=== PATIENT | female | born 1945 | race Caucasian/White ===

== ENCOUNTER 2023-10-12 17:03 | Emergency (ER) | payer MEDICARE ==
[2023-10-12 17:14] VITALS: BP 154/73; PULSE 73
== END 2023-10-12 17:45 | disposition home or self-care (01) ==
LOC: KA.ED 17:03
DX: H92.02 Otalgia, left ear (principal); I10 Essential (primary) hypertension; Z86.16 Personal history of COVID-19; Z91.018 Allergy to other foods; Z88.0 Allergy status to penicillin; Z88.5 Allergy status to narcotic agent; Z88.2 Allergy status to sulfonamides; Z88.1 Allergy status to other antibiotic agents; Z88.6 Allergy status to analgesic agent
CPT/HCPCS: 69209; 99282

== ENCOUNTER 2023-11-30 17:10 | Inpatient (IN) | payer MEDICARE ==
[2023-11-30] MEDS ORDERED: Sodium Chloride 0.9% 10 ML Syringe FLUSH PRN (17:30)
[2023-11-30 17:43] LABS: BASOPHILS ABSOLUTE AUTO 0.01 10^3/uL (0.00-0.10); BASOPHILS PERCENT AUTO 0.1 % (0.0-1.0); EOSINOPHILS ABSOLUTE AUTO 0.01 10^3/uL (0.10-0.30); EOSINOPHILS PERCENT AUTO 0.1 % (1.0-3.0); HEMATOCRIT 45.6 % (37.0-47.0); HEMOGLOBIN 15.1 g/dL (12.0-16.0); IMMATURE GRAN ABSOLUTE AUTO 0.03 10^3/uL (0.00-0.50); IMMATURE GRAN PERCENT AUTO 0.2 % (0.0-5.0); LYMPHOCYTES ABSOLUTE AUTO 0.39 10^3/uL (1.00-4.00); MEAN CORPUSCULAR HEMOGLOBIN 29.4 pg (27.0-31.0); MEAN CORPUSCULAR HGB CONC 33.1 g/dL (32.0-36.0); MEAN CORPUSCULAR VOLUME 88.7 fL (82.0-92.0); MEAN PLATELET VOLUME 9.8 fL (7.4-10.4); MONOCYTES ABSOLUTE AUTO 1.13 10^3/uL (0.10-0.80); MONOCYTES PERCENT AUTO 8.7 % (2.0-8.0); NEUTROPHILS ABSOLUTE AUTO 11.43 10^3/uL (2.50-7.00); NEUTROPHILS PERCENT AUTO 87.9 % (50.0-70.0); PLATELET COUNT,PLT 178 10^3/uL (150-400); RED BLOOD CELL COUNT 5.14 10^6/uL (3.80-5.50); RED CELL DISTRIBUTION WIDTH 13.6 % (11.5-14.5)
[2023-11-30] MEDS: Sodium Chloride 0.9% 1,000 ML IV ONE (17:53)
[2023-11-30] MEDS: Albuterol/Ipratropium 3.0-0.5 MG/3 ML Neb Soln NEB ONE ×2 (17:53→18:38)
[2023-11-30 18:02] LABS: LACTIC ACID 1.6 mmol/L (0.4-2.0)
[2023-11-30 18:08] LABS: ALANINE AMINOTRANSFERASE,ALT 57 U/L (14-63); ALBUMIN 3.06 g/dL (3.40-5.00); ALKALINE PHOSPHATASE 166 U/L (46-116); ANION GAP 14.5 mmol/L (5-15); ASPARTATE AMNIOTRANSFERASE,AST 41 U/L (15-37); BILIRUBIN TOTAL 2.1 mg/dL (0.2-1.0); BLOOD UREA NITROGEN,BUN 18 mg/dL (7-18); CALCIUM 8.7 mg/dL (8.7-10.3); CARBON DIOXIDE,CO2 28.2 mmol/L (21.0-32.0); CHLORIDE,CL 98 mmol/L (98-107); CREATININE 0.74 mg/dL (0.51-1.17); ESTIMATED GFR 82 mL/min (>=60); GLUCOSE RANDOM 123 mg/dL (70-140); POTASSIUM,K 3.7 mmol/L (3.5-5.1); PROTEIN TOTAL,TP 6.4 g/dL (6.4-8.2); SODIUM,NA 137 mmol/L (136-145)
[2023-11-30 18:10] LABS: CORONAVIRUS COVID-19 NAA NEGATIVE (NEGATIVE); INFLUENZA A NAA NEGATIVE (NEGATIVE); INFLUENZA B NAA NEGATIVE (NEGATIVE); RESPIRATORY SYNCYTIAL VIR NAA NEGATIVE (NEGATIVE)
[2023-11-30] MEDS: cefTRIAXone 1 GM Vial IVPUSH ONE (18:38)
[2023-11-30] MEDS: Azithromycin 500 MG in Sodium Chloride 0.9% 250 ML IV ONE (19:00)
[2023-11-30] MEDS: methylPREDNISolone Sodium Succinate 125 MG/2 ML SDV IVPUSH ONE (19:00)
[2023-11-30] MEDS: rOPINIRole 1 MG Tab PO SCH (21:16)
[2023-11-30] MEDS: Albuterol/Ipratropium 3.0-0.5 MG/3 ML Neb Soln NEB PRN (22:50)
[2023-12-01 05:57] LABS: APPEARANCE,URINE CLEAR (CLEAR); BILIRUBIN,URINE SMALL (NEGATIVE); COLOR,URINE AMBER (YELLOW); GLUCOSE,URINE 100 mg/dL (NEGATIVE); KETONES,URINE 40 mg/dL (NEGATIVE); LEUKOCYTE ESTERASE,URINE NEGATIVE (NEGATIVE); NITRITE,URINE NEGATIVE (NEGATIVE); OCCULT BLOOD,URINE MODERATE (NEGATIVE); PH,URINE 5.5 (5.0-9.0); PROTEIN,URINE >=300 mg/dL (NEGATIVE); UROBILINOGEN,URINE >=8.0 E.U./dL (0.2-1.0)
[2023-12-01 06:07] LABS: BACTERIA,URINE FEW /HPF (NONE TO FEW); EPITHELIAL CELLS,URINE FEW /LPF; WBC,URINE 0-5 /HPF (0-5); YEAST,URINE RARE /HPF (NEGATIVE)
[2023-12-01] MEDS: Acetaminophen 325 MG Tab PO PRN (06:26)
[2023-12-01 06:46] LABS: HEMATOCRIT 42.8 % (37.0-47.0); HEMOGLOBIN 14.3 g/dL (12.0-16.0); MEAN CORPUSCULAR HEMOGLOBIN 29.2 pg (27.0-31.0); MEAN CORPUSCULAR HGB CONC 33.4 g/dL (32.0-36.0); MEAN CORPUSCULAR VOLUME 87.5 fL (82.0-92.0); PLATELET COUNT,PLT 181 10^3/uL (150-400); RED BLOOD CELL COUNT 4.89 10^6/uL (3.80-5.50); RED CELL DISTRIBUTION WIDTH 13.6 % (11.5-14.5); WHITE BLOOD CELL COUNT,WBC 11.06 10^3/uL (5.00-10.00)
[2023-12-01 06:59] LABS: ANION GAP 15.5 mmol/L (5-15); CALCIUM 8.7 mg/dL (8.7-10.3); CARBON DIOXIDE,CO2 26.1 mmol/L (21.0-32.0); CREATININE 0.57 mg/dL (0.51-1.17); EST CRCL DRUG DOSING (CG) 56.54 mL/min; POTASSIUM,K 3.6 mmol/L (3.5-5.1)
[2023-12-01 07:19] LABS: LYMPHOCYTES PERCENT MAN 5 % (20-40); MONOCYTES ABSOLUTE MAN 0.2212; MONOCYTES PERCENT MAN 2 % (2-8); NEUTROPHILS ABSOLUTE MAN 10.2858; SEG NEUTROPHILS PERCENT MAN 93 % (50-70)
[2023-12-01] MEDS: rOPINIRole 1 MG Tab PO SCH (08:35)
[2023-12-01] MEDS: predniSONE 20 MG Tab PO SCH (08:35)
[2023-12-01] MEDS: guaiFENesin 600 MG Tab.ER PO SCH (08:35)
[2023-12-01] MEDS: Atenolol 25 MG Tab PO SCH (08:38)
[2023-12-01] MEDS: amLODIPine 5 MG Tab PO SCH (08:39)
[2023-12-01] MEDS: Hydrochlorothiazide/Triamterene 25-37.5 MG Cap PO SCH (08:39)
[2023-12-01] MEDS: Azithromycin 250 MG Tab PO SCH (08:39)
[2023-12-01] MEDS: Enoxaparin 40 MG/0.4 ML Syringe SUBCUT SCH (08:40)
[2023-12-01] MEDS: cefTRIAXone 2 GM Vial IVPUSH SCH (08:40)
[2023-12-01] MEDS ORDERED: guaiFENesin 600 MG Tab.ER PO SCH (09:00)
[2023-12-01] MEDS: Furosemide 40 MG/4 ML VIAL IVPUSH ONE (12:15)
[2023-12-01] MEDS: Ketorolac 30 MG/ML SDV IVPUSH PRN (14:49)
[2023-12-01] MEDS: guaiFENesin/Dextromethorphan 100-10 MG/5 ML Soln 5 ML Cup PO PRN (16:16)
[2023-12-01] MEDS: Ondansetron 4 MG/2 ML SDV IVPUSH PRN (18:13)
[2023-12-02] MEDS: Codeine/guaiFENesin 10-100 MG/5 ML Syrup 5 ML Cup PO PRN (05:20)
[2023-12-02 06:28] LABS: HEMATOCRIT 45.4 % (37.0-47.0); HEMOGLOBIN 15.1 g/dL (12.0-16.0); IMMATURE GRAN ABSOLUTE AUTO 0.09 10^3/uL (0.00-0.50); IMMATURE GRAN PERCENT AUTO 0.4 % (0.0-5.0); LYMPHOCYTES ABSOLUTE AUTO 0.95 10^3/uL (1.00-4.00); LYMPHOCYTES PERCENT AUTO 4.7 % (20.0-40.0); MEAN CORPUSCULAR HEMOGLOBIN 29.1 pg (27.0-31.0); MEAN CORPUSCULAR HGB CONC 33.3 g/dL (32.0-36.0); MEAN CORPUSCULAR VOLUME 87.5 fL (82.0-92.0); MEAN PLATELET VOLUME 10.1 fL (7.4-10.4); MONOCYTES ABSOLUTE AUTO 1.57 10^3/uL (0.10-0.80); MONOCYTES PERCENT AUTO 7.7 % (2.0-8.0); NEUTROPHILS ABSOLUTE AUTO 17.76 10^3/uL (2.50-7.00); NEUTROPHILS PERCENT AUTO 87.2 % (50.0-70.0); PLATELET COUNT,PLT 235 10^3/uL (150-400); RED BLOOD CELL COUNT 5.19 10^6/uL (3.80-5.50); RED CELL DISTRIBUTION WIDTH 13.8 % (11.5-14.5); WHITE BLOOD CELL COUNT,WBC 20.37 10^3/uL (5.00-10.00)
[2023-12-02] MEDS: Diltiazem 25 MG/5 ML SDV IVPUSH ONE ×3 (06:32→08:50)
[2023-12-02] MEDS: Apixaban 5 MG Tab PO SCH (06:35)
[2023-12-02] MEDS: Diltiazem 125 MG in Sodium Chloride 0.9% 100 ML IV SCH (06:44)
[2023-12-02 06:56] LABS: ALBUMIN 2.85 g/dL (3.40-5.00); ANION GAP 12.5 mmol/L (5-15); BILIRUBIN TOTAL 0.6 mg/dL (0.2-1.0); CALCIUM 8.7 mg/dL (8.7-10.3); CARBON DIOXIDE,CO2 28.4 mmol/L (21.0-32.0); CREATININE 0.69 mg/dL (0.51-1.17); EST CRCL DRUG DOSING (CG) 46.71 mL/min; POTASSIUM,K 3.9 mmol/L (3.5-5.1); PROTEIN TOTAL,TP 6.4 g/dL (6.4-8.2)
[2023-12-02 12:04] LABS: PCO2 ARTERIAL,POC 38 mmHg (35-48); PH ARTERIAL,POC 7.47 pH (7.35-7.45)
[2023-12-02 12:05] LABS: HCO3 ARTERIAL,POC 27.7 mmol/L (21-28)
[2023-12-02 12:07] LABS: PO2 ARTERIAL,POC 55 mmHg (83-108)
[2023-12-02 12:12] LABS: HCO3 ARTERIAL,POC 27.7 mmol/L (21-28); PCO2 ARTERIAL,POC 38 mmHg (35-48); PH ARTERIAL,POC 7.47 pH (7.35-7.45); PO2 ARTERIAL,POC 55 mmHg (83-108)
[2023-12-02] MEDS ORDERED: Sodium Chloride 0.9% 50 ML IV SCH (12:30)
[2023-12-02] MEDS: Iopamidol 755 Mg/ML 100 ML Bottle IV ONE (13:55)
[2023-12-02] MEDS: Sodium Chloride 0.9% 100 ML IV SCH (13:59)
[2023-12-02 14:32] VITALS: BP 117/69; PULSE 113
== END 2023-12-02 14:15 | DRG 871 ==
LOC: KA.ED 17:10 → KA.MS 19:11
PROVIDERS: ADMIT Family Medicine; ATTEND Internal Medicine
PROC: 4A033R1 Measurement of Arterial Saturation, Peripheral, Percutaneous Approach (ICD-10-PCS; principal; 2023-11-30)
PROC: 3E03329 Introduction of Other Anti-infective into Peripheral Vein, Percutaneous Approach (ICD-10-PCS; 2023-11-30)
DX: A41.9 Sepsis, unspecified organism (principal); J96.01 Acute respiratory failure with hypoxia; I42.9 Cardiomyopathy, unspecified; J44.1 Chronic obstructive pulmonary disease with (acute) exacerbation; J44.0 Chronic obstructive pulmonary disease with (acute) lower respiratory infection; J84.9 Interstitial pulmonary disease, unspecified; Z66 Do not resuscitate; I50.9 Heart failure, unspecified; I11.0 Hypertensive heart disease with heart failure; M19.90 Unspecified osteoarthritis, unspecified site; G43.909 Migraine, unspecified, not intractable, without status migrainosus; F32.A Depression, unspecified; G25.81 Restless legs syndrome; F17.210 Nicotine dependence, cigarettes, uncomplicated; R09.02 Hypoxemia; I10 Essential (primary) hypertension; I48.91 Unspecified atrial fibrillation; Z86.16 Personal history of COVID-19; Z79.899 Other long term (current) drug therapy; Z88.0 Allergy status to penicillin; Z98.890 Other specified postprocedural states; Z88.2 Allergy status to sulfonamides; Z91.018 Allergy to other foods; Z88.8 Allergy status to other drugs, medicaments and biological substances; M54.9 Dorsalgia, unspecified; G89.29 Other chronic pain; Z87.11 Personal history of peptic ulcer disease; M81.0 Age-related osteoporosis without current pathological fracture; Z91.51 Personal history of suicidal behavior; Z98.1 Arthrodesis status
CPT/HCPCS: 0241U; 36415; 36600; 71045; 71275; 80048; 80053; 81001; 82803; 83605; 84484; 85025; 87040; 87070; 87205; 93005; 93010; 94640; 96361; 96374; 96375; 99223-GT; 99233-GT; 99239-GT; 99284; 99285-25; A9270-GY; J0456; J0696; J1650; J1885; J1940; J2405; J2930; J3490; J7030; J7050; J7512; J7620-GY; Q3014; Q9967

== ENCOUNTER 2024-01-14 09:15 | Emergency (ER) | payer MEDICARE ==
[2024-01-14 09:38] VITALS: BP 106/64; PULSE 81
[2024-01-14 10:00] LABS: BASOPHILS ABSOLUTE AUTO 0.06 10^3/uL (0.00-0.10); BASOPHILS PERCENT AUTO 0.7 % (0.0-1.0); EOSINOPHILS ABSOLUTE AUTO 0.37 10^3/uL (0.10-0.30); EOSINOPHILS PERCENT AUTO 4.1 % (1.0-3.0); HEMATOCRIT 42.1 % (37.0-47.0); HEMOGLOBIN 13.4 g/dL (12.0-16.0); IMMATURE GRAN ABSOLUTE AUTO 0.18 10^3/uL (0.00-0.50); LYMPHOCYTES ABSOLUTE AUTO 0.92 10^3/uL (1.00-4.00); LYMPHOCYTES PERCENT AUTO 10.1 % (20.0-40.0); MEAN CORPUSCULAR HEMOGLOBIN 28.6 pg (27.0-31.0); MEAN CORPUSCULAR HGB CONC 31.8 g/dL (32.0-36.0); MEAN CORPUSCULAR VOLUME 89.8 fL (82.0-92.0); MEAN PLATELET VOLUME 9.7 fL (7.4-10.4); MONOCYTES ABSOLUTE AUTO 0.83 10^3/uL (0.10-0.80); MONOCYTES PERCENT AUTO 9.1 % (2.0-8.0); NEUTROPHILS ABSOLUTE AUTO 6.76 10^3/uL (2.50-7.00); PLATELET COUNT,PLT 256 10^3/uL (150-400); RED BLOOD CELL COUNT 4.69 10^6/uL (3.80-5.50); RED CELL DISTRIBUTION WIDTH 15.5 % (11.5-14.5); WHITE BLOOD CELL COUNT,WBC 9.12 10^3/uL (5.00-10.00)
[2024-01-14 10:17] LABS: ALBUMIN 3.21 g/dL (3.40-5.00); ANION GAP 7.8 mmol/L (5-15); BILIRUBIN TOTAL 0.4 mg/dL (0.2-1.0); CALCIUM 9.2 mg/dL (8.7-10.3); CREATININE 1.01 mg/dL (0.51-1.17); EST CRCL DRUG DOSING (CG) 31.91 mL/min; POTASSIUM,K 4.8 mmol/L (3.5-5.1); PROTEIN TOTAL,TP 6.5 g/dL (6.4-8.2)
== END 2024-01-14 11:05 | disposition home or self-care (01) ==
LOC: KA.ED 09:15
DX: Z43.3 Encounter for attention to colostomy (principal); I10 Essential (primary) hypertension; J44.89 Other specified chronic obstructive pulmonary disease; Z88.8 Allergy status to other drugs, medicaments and biological substances; Z88.0 Allergy status to penicillin; Z88.2 Allergy status to sulfonamides; Z91.018 Allergy to other foods; Z79.899 Other long term (current) drug therapy; Z79.82 Long term (current) use of aspirin; Z86.19 Personal history of other infectious and parasitic diseases; Z86.16 Personal history of COVID-19
CPT/HCPCS: 36415; 74021; 80053; 85025; 99283

== ENCOUNTER 2024-07-16 14:10 | Emergency (ER) | payer MEDICARE ==
[2024-07-16 14:20] VITALS: BP 134/75; PULSE 78
[2024-07-16] MEDS: HYDROmorphone 1 MG/ML Syringe IVPUSH ONE (14:32)
[2024-07-16] MEDS: diphenhydrAMINE 50 MG/ML SDV IVPUSH ONE (15:28)
[2024-07-16] MEDS: Lidocaine 1% 5 ML VIAL INJECT ONE (15:30)
[2024-07-16] MEDS: Triamcinolone Acetonide 40 MG/ML 1 ML SDV INJECT ONE (15:30)
== END 2024-07-16 16:05 | disposition home or self-care (01) ==
LOC: KA.ED 14:10
DX: M70.61 Trochanteric bursitis, right hip (principal); M47.816 Spondylosis without myelopathy or radiculopathy, lumbar region; M16.11 Unilateral primary osteoarthritis, right hip; M43.26 Fusion of spine, lumbar region; I10 Essential (primary) hypertension; J45.909 Unspecified asthma, uncomplicated; Z88.0 Allergy status to penicillin; Z88.2 Allergy status to sulfonamides; Z91.018 Allergy to other foods; Z88.8 Allergy status to other drugs, medicaments and biological substances; Z79.82 Long term (current) use of aspirin; Z79.899 Other long term (current) drug therapy; Z86.16 Personal history of COVID-19
CPT/HCPCS: 20610; 72100; 96374; 96375; 99283-25; J1171; J1200; J3301; J3490

== ENCOUNTER 2024-10-20 13:57 | Inpatient (IN) | payer MEDICARE ==
[2024-10-20] MEDS ORDERED: Albuterol/Ipratropium 3.0-0.5 MG/3 ML Neb Soln NEB PRN ×2 (14:06→18:17)
[2024-10-20] MEDS: Sodium Chloride 0.9% 1,000 ML IV SCH (14:19)
[2024-10-20] MEDS: Acetaminophen 500 MG Tab PO ONE (14:19)
[2024-10-20 14:27] LABS: BASOPHILS ABSOLUTE AUTO 0.02 10^3/uL (0.00-0.10); BASOPHILS PERCENT AUTO 0.2 % (0.0-1.0); EOSINOPHILS PERCENT AUTO 1.2 % (1.0-3.0); HEMOGLOBIN 16.3 g/dL (12.0-16.0); IMMATURE GRAN ABSOLUTE AUTO 0.05 10^3/uL (0.00-0.04); IMMATURE GRAN PERCENT AUTO 0.6 % (0.0-0.4); LYMPHOCYTES ABSOLUTE AUTO 0.33 10^3/uL (1.00-4.00); LYMPHOCYTES PERCENT AUTO 4.1 % (20.0-40.0); MEAN CORPUSCULAR HEMOGLOBIN 29.6 pg (27.0-31.0); MEAN CORPUSCULAR HGB CONC 33.3 g/dL (32.0-36.0); MEAN CORPUSCULAR VOLUME 88.9 fL (82.0-92.0); MEAN PLATELET VOLUME 9.5 fL (7.4-10.4); MONOCYTES ABSOLUTE AUTO 0.68 10^3/uL (0.10-0.80); MONOCYTES PERCENT AUTO 8.5 % (2.0-8.0); NEUTROPHILS ABSOLUTE AUTO 6.83 10^3/uL (2.50-7.00); NEUTROPHILS PERCENT AUTO 85.4 % (50.0-70.0); PLATELET COUNT,PLT 162 10^3/uL (150-400); RED BLOOD CELL COUNT 5.51 10^6/uL (3.80-5.50); RED CELL DISTRIBUTION WIDTH 14.4 % (11.5-14.5); WHITE BLOOD CELL COUNT,WBC 8.01 10^3/uL (5.00-10.00)
[2024-10-20 14:44] LABS: ALBUMIN 3.65 g/dL (3.40-5.00); ANION GAP 15.6 mmol/L (5-15); BILIRUBIN TOTAL 0.4 mg/dL (0.2-1.0); C-REACTIVE PROTEIN 1.51 mg/dL (0.00-0.50); CALCIUM 8.8 mg/dL (8.7-10.3); CREATININE 0.74 mg/dL (0.51-1.17); EST CRCL DRUG DOSING (CG) 43.55 mL/min; POTASSIUM,K 3.6 mmol/L (3.5-5.1); PROTEIN TOTAL,TP 6.6 g/dL (6.4-8.2)
[2024-10-20 14:56] LABS: APPEARANCE,URINE SLIGHTLY CLOUDY (CLEAR); BILIRUBIN,URINE NEGATIVE (NEGATIVE); COLOR,URINE YELLOW (YELLOW); GLUCOSE,URINE NEGATIVE (NEGATIVE); KETONES,URINE NEGATIVE (NEGATIVE); NITRITE,URINE NEGATIVE (NEGATIVE); PH,URINE 5.5 (5.0-9.0); PROTEIN,URINE 100 mg/dL (NEGATIVE); UROBILINOGEN,URINE 0.2 E.U./dL (0.2-1.0)
[2024-10-20 15:03] LABS: LEUKOCYTE ESTERASE,URINE SMALL (NEGATIVE); OCCULT BLOOD,URINE SMALL (NEGATIVE)
[2024-10-20 15:04] LABS: BACTERIA,URINE FEW /HPF (NONE TO FEW); EPITHELIAL CELLS,URINE FEW /LPF
[2024-10-20 15:06] LABS: INFLUENZA A NAA POSITIVE (NEGATIVE); INFLUENZA B NAA NEGATIVE (NEGATIVE); RESPIRATORY SYNCYTIAL VIR NAA NEGATIVE (NEGATIVE)
[2024-10-20 15:07] LABS: CORONAVIRUS COVID-19 NAA NEGATIVE (NEGATIVE)
[2024-10-20] MEDS: methylPREDNISolone Sodium Succinate 125 MG/2 ML SDV IVPUSH ONE (15:15)
[2024-10-20] MEDS: Oseltamivir 75 MG Cap PO ONE (15:16)
[2024-10-20] MEDS ORDERED: Sodium Chloride 0.9% 1,000 ML IV SCH (15:45)
[2024-10-20] MEDS: cefTRIAXone 2 GM Vial IVPUSH ONE (15:57)
[2024-10-20] MEDS: Azithromycin 500 MG in Sodium Chloride 0.9% 250 ML IV ONE (15:57)
[2024-10-20] MEDS ORDERED: traMADol 50 MG Tab PO PRN (16:09)
[2024-10-20] MEDS ORDERED: Ondansetron 4 MG Tab.DIS PO PRN (16:09)
[2024-10-20] MEDS: Albuterol/Ipratropium 3.0-0.5 MG/3 ML Neb Soln NEB SCH (17:42)
[2024-10-20] MEDS: Enoxaparin 40 MG/0.4 ML Syringe SUBCUT SCH (17:42)
[2024-10-20] MEDS: rOPINIRole 1 MG Tab PO SCH (17:43)
[2024-10-20] MEDS: Diltiazem 25 MG/5 ML SDV IVPUSH ONE (20:23)
[2024-10-20] MEDS: Lactobacillus Rhamnosus GG (Probiotic) Cap PO SCH (21:42)
[2024-10-20] MEDS: Gabapentin 300 MG Cap PO SCH (21:42)
[2024-10-20] MEDS: guaiFENesin 600 MG Tab.ER PO SCH (21:42)
[2024-10-20] MEDS: Oseltamivir 30 MG Cap PO SCH (21:43)
[2024-10-20] MEDS: Metoprolol Tartrate 5 MG/5 ML SDV IVPUSH PRN (23:08)
[2024-10-21 07:50] LABS: EOSINOPHILS ABSOLUTE AUTO 0.02 10^3/uL (0.10-0.30); EOSINOPHILS PERCENT AUTO 0.3 % (1.0-3.0); HEMOGLOBIN 16.1 g/dL (12.0-16.0); IMMATURE GRAN ABSOLUTE AUTO 0.02 10^3/uL (0.00-0.04); IMMATURE GRAN PERCENT AUTO 0.3 % (0.0-0.4); LYMPHOCYTES ABSOLUTE AUTO 0.22 10^3/uL (1.00-4.00); LYMPHOCYTES PERCENT AUTO 3.1 % (20.0-40.0); MEAN CORPUSCULAR HEMOGLOBIN 29.1 pg (27.0-31.0); MEAN CORPUSCULAR HGB CONC 32.9 g/dL (32.0-36.0); MEAN CORPUSCULAR VOLUME 88.4 fL (82.0-92.0); MEAN PLATELET VOLUME 9.3 fL (7.4-10.4); MONOCYTES ABSOLUTE AUTO 0.27 10^3/uL (0.10-0.80); MONOCYTES PERCENT AUTO 3.9 % (2.0-8.0); NEUTROPHILS ABSOLUTE AUTO 6.47 10^3/uL (2.50-7.00); PLATELET COUNT,PLT 164 10^3/uL (150-400); RED BLOOD CELL COUNT 5.54 10^6/uL (3.80-5.50); RED CELL DISTRIBUTION WIDTH 14.4 % (11.5-14.5)
[2024-10-21 08:11] LABS: ANION GAP 12.1 mmol/L (5-15); CALCIUM 8.8 mg/dL (8.7-10.3); CARBON DIOXIDE,CO2 28.4 mmol/L (21.0-32.0); CREATININE 0.52 mg/dL (0.51-1.17); EST CRCL DRUG DOSING (CG) 61.98 mL/min; MAGNESIUM 1.6 mg/dL (1.8-2.4); POTASSIUM,K 3.5 mmol/L (3.5-5.1)
[2024-10-21 08:31] LABS: NEUTROPHILS PERCENT AUTO 92.4 % (50.0-70.0)
[2024-10-21] MEDS: Diltiazem 120 MG Cap.CD PO SCH (08:55)
[2024-10-21] MEDS: Azithromycin 250 MG Tab PO SCH (08:55)
[2024-10-21] MEDS: Aspirin 325 MG Tab.EC PO SCH (08:56)
[2024-10-21] MEDS: Oseltamivir 75 MG Cap PO SCH (08:56)
[2024-10-21] MEDS ORDERED: Oseltamivir 75 MG Cap PO SCH (09:00)
[2024-10-21] MEDS: Furosemide 40 MG/4 ML VIAL IVPUSH ONE (09:39)
[2024-10-21] MEDS: Iopamidol 755 Mg/ML 100 ML Bottle IV ONE (13:50)
[2024-10-21] MEDS: Sodium Chloride 0.9% 100 ML IV SCH (13:50)
[2024-10-21] MEDS: cefTRIAXone 2 GM Vial IVPUSH SCH (14:02)
[2024-10-21] MEDS: Magnesium Sulfate/Water Premix 2 GM in Premix Bag 1 BAG IV ONE (14:07)
[2024-10-22] MEDS: ALPRAZolam 0.25 MG Tab PO PRN (13:24)
[2024-10-22] MEDS: Metoprolol Tartrate 25 MG Tab PO SCH (20:05)
[2024-10-22] MEDS: Acetaminophen 325 MG Tab PO PRN (21:04)
[2024-10-23 12:08] LABS: HCO3 ARTERIAL,POC 28.2 mmol/L (21-28); O2 SATURATION ARTERIAL,POC 93.4 % (94-98); PCO2 ARTERIAL,POC 37 mmHg (35-48); PH ARTERIAL,POC 7.49 pH (7.35-7.45); PO2 ARTERIAL,POC 63 mmHg (83-108)
[2024-10-23 12:33] LABS: BASOPHILS ABSOLUTE AUTO 0.02 10^3/uL (0.00-0.10); BASOPHILS PERCENT AUTO 0.3 % (0.0-1.0); EOSINOPHILS ABSOLUTE AUTO 0.04 10^3/uL (0.10-0.30); EOSINOPHILS PERCENT AUTO 0.5 % (1.0-3.0); HEMATOCRIT 48.6 % (37.0-47.0); HEMOGLOBIN 15.9 g/dL (12.0-16.0); IMMATURE GRAN ABSOLUTE AUTO 0.03 10^3/uL (0.00-0.04); IMMATURE GRAN PERCENT AUTO 0.4 % (0.0-0.4); LYMPHOCYTES PERCENT AUTO 9.5 % (20.0-40.0); MEAN CORPUSCULAR HEMOGLOBIN 29.1 pg (27.0-31.0); MEAN CORPUSCULAR HGB CONC 32.7 g/dL (32.0-36.0); MEAN CORPUSCULAR VOLUME 88.8 fL (82.0-92.0); MONOCYTES ABSOLUTE AUTO 0.79 10^3/uL (0.10-0.80); MONOCYTES PERCENT AUTO 10.7 % (2.0-8.0); NEUTROPHILS ABSOLUTE AUTO 5.78 10^3/uL (2.50-7.00); NEUTROPHILS PERCENT AUTO 78.6 % (50.0-70.0); PLATELET COUNT,PLT 172 10^3/uL (150-400); RED BLOOD CELL COUNT 5.47 10^6/uL (3.80-5.50); RED CELL DISTRIBUTION WIDTH 14.5 % (11.5-14.5); WHITE BLOOD CELL COUNT,WBC 7.36 10^3/uL (5.00-10.00)
[2024-10-23 12:41] LABS: ANION GAP 12.5 mmol/L (5-15); CALCIUM 8.8 mg/dL (8.7-10.3); CARBON DIOXIDE,CO2 28.3 mmol/L (21.0-32.0); CREATININE 0.51 mg/dL (0.51-1.17); EST CRCL DRUG DOSING (CG) 63.19 mL/min; POTASSIUM,K 3.8 mmol/L (3.5-5.1)
[2024-10-23] MEDS: ALPRAZolam 0.25 MG Tab PO PRN (14:10)
[2024-10-23] MEDS ORDERED: Lidocaine 4% 1 each Patch TOP SCH (20:15)
[2024-10-23] MEDS: Lidocaine 4% 1 each Patch TOP SCH (20:21)
[2024-10-23] MEDS: atorvaSTATin 40 MG Tab PO SCH (20:22)
[2024-10-24] MEDS: Acetaminophen 325 MG Tab PO PRN (14:27)
[2024-10-24] MEDS: Polyethylene Glycol 3350 Powder 17 GM Packet PO PRN (16:47)
[2024-10-25] MEDS: Furosemide 20 MG Tab PO SCH (09:09)
[2024-10-25] MEDS: Iopamidol 755 Mg/ML 100 ML Bottle IV ONE (11:22)
[2024-10-25] MEDS: Sodium Chloride 0.9% 50 ML IV SCH (11:22)
[2024-10-25] MEDS: Lidocaine 4% 1 each Patch TOP SCH (15:06)
[2024-10-25] MEDS: Apixaban 5 MG Tab PO SCH (20:20)
[2024-10-26 07:27] LABS: BASOPHILS ABSOLUTE AUTO 0.02 10^3/uL (0.00-0.10); BASOPHILS PERCENT AUTO 0.3 % (0.0-1.0); EOSINOPHILS ABSOLUTE AUTO 0.22 10^3/uL (0.10-0.30); EOSINOPHILS PERCENT AUTO 3.2 % (1.0-3.0); HEMATOCRIT 47.8 % (37.0-47.0); HEMOGLOBIN 15.8 g/dL (12.0-16.0); IMMATURE GRAN ABSOLUTE AUTO 0.06 10^3/uL (0.00-0.04); IMMATURE GRAN PERCENT AUTO 0.9 % (0.0-0.4); LYMPHOCYTES PERCENT AUTO 13.2 % (20.0-40.0); MEAN CORPUSCULAR HEMOGLOBIN 29.2 pg (27.0-31.0); MEAN CORPUSCULAR HGB CONC 33.1 g/dL (32.0-36.0); MEAN CORPUSCULAR VOLUME 88.2 fL (82.0-92.0); MEAN PLATELET VOLUME 9.2 fL (7.4-10.4); MONOCYTES ABSOLUTE AUTO 0.59 10^3/uL (0.10-0.80); MONOCYTES PERCENT AUTO 8.6 % (2.0-8.0); NEUTROPHILS ABSOLUTE AUTO 5.04 10^3/uL (2.50-7.00); NEUTROPHILS PERCENT AUTO 73.8 % (50.0-70.0); PLATELET COUNT,PLT 178 10^3/uL (150-400); RED BLOOD CELL COUNT 5.42 10^6/uL (3.80-5.50); RED CELL DISTRIBUTION WIDTH 14.1 % (11.5-14.5); WHITE BLOOD CELL COUNT,WBC 6.83 10^3/uL (5.00-10.00)
[2024-10-26 07:42] LABS: ANION GAP 9.9 mmol/L (5-15); CALCIUM 8.7 mg/dL (8.7-10.3); CARBON DIOXIDE,CO2 31.1 mmol/L (21.0-32.0); CREATININE 0.53 mg/dL (0.51-1.17); EST CRCL DRUG DOSING (CG) 60.81 mL/min
[2024-10-26 10:57] VITALS: BP 115/70; PULSE 89
== END 2024-10-26 10:50 | disposition home or self-care (01) | DRG 871 ==
LOC: KA.ED 13:57 → KA.MS 15:42
PROVIDERS: ADMIT Hospitalist; ATTEND Internal Medicine
DX: A41.9 Sepsis, unspecified organism (principal); J10.08 Influenza due to other identified influenza virus with other specified pneumonia; J96.01 Acute respiratory failure with hypoxia; J44.0 Chronic obstructive pulmonary disease with (acute) lower respiratory infection; G45.9 Transient cerebral ischemic attack, unspecified; R65.20 Severe sepsis without septic shock; H26.9 Unspecified cataract; H54.7 Unspecified visual loss; H91.90 Unspecified hearing loss, unspecified ear; J18.9 Pneumonia, unspecified organism; M19.90 Unspecified osteoarthritis, unspecified site; G89.29 Other chronic pain; G43.909 Migraine, unspecified, not intractable, without status migrainosus; F32.A Depression, unspecified; M81.0 Age-related osteoporosis without current pathological fracture; D64.9 Anemia, unspecified; F17.210 Nicotine dependence, cigarettes, uncomplicated; J43.1 Panlobular emphysema; M54.16 Radiculopathy, lumbar region; I48.0 Paroxysmal atrial fibrillation; I10 Essential (primary) hypertension; G25.81 Restless legs syndrome; M70.61 Trochanteric bursitis, right hip; J10.1 Influenza due to other identified influenza virus with other respiratory manifestations; Z88.5 Allergy status to narcotic agent; Z86.16 Personal history of COVID-19; Z79.1 Long term (current) use of non-steroidal anti-inflammatories (NSAID); Z79.899 Other long term (current) drug therapy; Z79.82 Long term (current) use of aspirin; Z87.81 Personal history of (healed) traumatic fracture; Z88.8 Allergy status to other drugs, medicaments and biological substances; Z98.890 Other specified postprocedural states; Z98.1 Arthrodesis status; Z88.0 Allergy status to penicillin; Z91.018 Allergy to other foods; Z88.2 Allergy status to sulfonamides
CPT/HCPCS: 0241U; 36415; 36600; 70450; 70496; 70498; 71045; 71275; 80048; 80053; 81001; 82803; 83605; 83735; 84484; 85025; 86140; 87040; 87086; 93005; 93010; 93306; 93970; 94640; 96374; 99223-GT; 99232-GT; 99233-GT; 99239-GT; 99284; 99285-25; A9270-GY; J0456; J0696; J1650; J1940; J2919; J3475; J3490; J7030; J7620-GY; Q3014; Q9967

== ENCOUNTER 2025-06-28 12:52 | Emergency (ER) | payer MEDICARE ==
[2025-06-28 13:25] LABS: BASOPHILS ABSOLUTE AUTO 0.02 10^3/uL (0.00-0.10); BASOPHILS PERCENT AUTO 0.3 % (0.0-1.0); EOSINOPHILS ABSOLUTE AUTO 0.13 10^3/uL (0.10-0.30); EOSINOPHILS PERCENT AUTO 1.8 % (1.0-3.0); IMMATURE GRAN ABSOLUTE AUTO 0.01 10^3/uL (0.00-0.04); IMMATURE GRAN PERCENT AUTO 0.1 % (0.0-0.4); LYMPHOCYTES ABSOLUTE AUTO 0.81 10^3/uL (1.00-4.00); LYMPHOCYTES PERCENT AUTO 11.4 % (20.0-40.0); MEAN PLATELET VOLUME 10.1 fL (7.4-10.4); MONOCYTES ABSOLUTE AUTO 0.66 10^3/uL (0.10-0.80); MONOCYTES PERCENT AUTO 9.3 % (2.0-8.0); NEUTROPHILS ABSOLUTE AUTO 5.47 10^3/uL (2.50-7.00); NEUTROPHILS PERCENT AUTO 77.1 % (50.0-70.0); PLATELET COUNT,PLT 196 10^3/uL (150-400); RED BLOOD CELL COUNT 5.33 10^6/uL (3.80-5.50); RED CELL DISTRIBUTION WIDTH 14.8 % (11.5-14.5); WHITE BLOOD CELL COUNT,WBC 7.10 10^3/uL (5.00-10.00)
[2025-06-28 13:43] LABS: ALANINE AMINOTRANSFERASE,ALT 47.0 U/L (14-63); ASPARTATE AMNIOTRANSFERASE,AST 43.0 U/L (15-37); BILIRUBIN TOTAL 0.5 mg/dL (0.2-1.0); BLOOD UREA NITROGEN,BUN 19.0 mg/dL (7-18); CARBON DIOXIDE,CO2 27.7 mmol/L (21.0-32.0); CHLORIDE,CL 104.0 mmol/L (98-107); CREATININE 0.67 mg/dL (0.51-1.17); EST CRCL DRUG DOSING (CG) 47.3 mL/min; ESTIMATED GFR 88.0 mL/min (>=60); GLUCOSE RANDOM 118.0 mg/dL (70-140); POTASSIUM,K 4.1 mmol/L (3.5-5.1); PROTEIN TOTAL,TP 5.9 g/dL (6.4-8.2); SODIUM,NA 141.0 mmol/L (136-145)
[2025-06-28 14:09] LABS: B-TYPE NATRIURETIC PEPTIDE,BNP 186.0 pg/mL (0-100)
[2025-06-28] MEDS: Heparin Sodium/D5W 250 ML IV SCH (15:58)
[2025-06-28] MEDS: Heparin Sodium 5,000 Units/ML Vial IVPUSH ONE (16:08)
[2025-06-28 17:39] VITALS: BP 123/80; PULSE 53
== END 2025-06-28 17:19 ==
LOC: KA.ED 12:52
DX: J18.9 Pneumonia, unspecified organism (principal); I48.91 Unspecified atrial fibrillation; R79.89 Other specified abnormal findings of blood chemistry; Z99.81 Dependence on supplemental oxygen; R09.02 Hypoxemia; I10 Essential (primary) hypertension; J44.9 Chronic obstructive pulmonary disease, unspecified; F17.210 Nicotine dependence, cigarettes, uncomplicated; Z88.8 Allergy status to other drugs, medicaments and biological substances; Z91.018 Allergy to other foods; Z88.0 Allergy status to penicillin; Z88.2 Allergy status to sulfonamides; Z79.899 Other long term (current) drug therapy; Z79.82 Long term (current) use of aspirin
CPT/HCPCS: 36415; 71045; 80053; 83880; 84484; 85025; 85730; 87040; 93010; 96374; 99284; 99285; A9270; J0696; J1644; J7030

== ENCOUNTER 2025-07-28 20:17 | Emergency (ER) | payer MEDICARE ==
[2025-07-28] MEDS ORDERED: Sodium Chloride 0.9% 10 ML Syringe FLUSH PRN (20:30)
[2025-07-28 21:08] LABS: APPEARANCE,URINE CLEAR (CLEAR); GLUCOSE,URINE NEGATIVE (NEGATIVE); OCCULT BLOOD,URINE SMALL (NEGATIVE)
[2025-07-28 21:11] LABS: BASOPHILS ABSOLUTE AUTO 0.01 10^3/uL (0.00-0.10); BASOPHILS PERCENT AUTO 0.1 % (0.0-1.0); EOSINOPHILS ABSOLUTE AUTO 0.06 10^3/uL (0.10-0.30); EOSINOPHILS PERCENT AUTO 0.6 % (1.0-3.0); IMMATURE GRAN ABSOLUTE AUTO 0.03 10^3/uL (0.00-0.04); IMMATURE GRAN PERCENT AUTO 0.3 % (0.0-0.4); LYMPHOCYTES ABSOLUTE AUTO 0.42 10^3/uL (1.00-4.00); LYMPHOCYTES PERCENT AUTO 4.3 % (20.0-40.0); MEAN PLATELET VOLUME 9.7 fL (7.4-10.4); MONOCYTES ABSOLUTE AUTO 0.81 10^3/uL (0.10-0.80); MONOCYTES PERCENT AUTO 8.3 % (2.0-8.0); NEUTROPHILS ABSOLUTE AUTO 8.43 10^3/uL (2.50-7.00); NEUTROPHILS PERCENT AUTO 86.4 % (50.0-70.0); PLATELET COUNT,PLT 177 10^3/uL (150-400); RED BLOOD CELL COUNT 6.32 10^6/uL (3.80-5.50); RED CELL DISTRIBUTION WIDTH 15.5 % (11.5-14.5); WHITE BLOOD CELL COUNT,WBC 9.76 10^3/uL (5.00-10.00)
[2025-07-28 21:18] LABS: EPITHELIAL CELLS,URINE FEW /LPF
[2025-07-28 21:30] LABS: ALANINE AMINOTRANSFERASE,ALT 25.0 U/L (14-63); ASPARTATE AMNIOTRANSFERASE,AST 21.0 U/L (15-37); BILIRUBIN TOTAL 0.9 mg/dL (0.2-1.0); BLOOD UREA NITROGEN,BUN 36.0 mg/dL (7-18); CARBON DIOXIDE,CO2 28.3 mmol/L (21.0-32.0); CHLORIDE,CL 104.0 mmol/L (98-107); CREATININE 0.62 mg/dL (0.51-1.17); EST CRCL DRUG DOSING (CG) 51.12 mL/min; ESTIMATED GFR 89.0 mL/min (>=60); GLUCOSE RANDOM 139.0 mg/dL (70-140); POTASSIUM,K 3.6 mmol/L (3.5-5.1); PROTEIN TOTAL,TP 6.4 g/dL (6.4-8.2); SODIUM,NA 142.0 mmol/L (136-145)
[2025-07-28] MEDS: Iopamidol 755 Mg/ML 100 ML Bottle IV ONE (22:55)
[2025-07-29] MEDS: Ondansetron 4 MG/2 ML SDV IVPUSH ONE (00:01)
[2025-07-29 02:07] VITALS: BP 140/82; PULSE 106
== END 2025-07-29 01:52 ==
LOC: KA.ED 20:17
DX: E86.0 Dehydration (principal); I10 Essential (primary) hypertension; I48.91 Unspecified atrial fibrillation; K56.699 Other intestinal obstruction unspecified as to partial versus complete obstruction; D75.1 Secondary polycythemia; Z88.0 Allergy status to penicillin; Z88.8 Allergy status to other drugs, medicaments and biological substances; Z79.899 Other long term (current) drug therapy; Z79.82 Long term (current) use of aspirin
CPT/HCPCS: 36415; 74022; 74177; 80053; 81001; 83605; 84484; 85025; 93010; 96361; 96374; 99284; 99285-25; J2405; J7030; Q9967